=== PATIENT | male | born 1975 | race Caucasian/White ===

== ENCOUNTER 2018-03-19 14:10 | Emergency (ER) | payer OTHER ==
[~2018-03-19] VITALS: Ht 177.8 cm; Wt 95.1 kg
[2018-03-19 14:13] VITALS: TEMP 98.6
[2018-03-19] MEDS ORDERED: PRIL40 PO (14:29)
[2018-03-19] MEDS ORDERED: AMOXICILLIN 8751 TAB PO (15:51)
[2018-03-19 16:08] VITALS: BP 132/78; PULSE 61
== END 2018-03-19 16:31 | disposition home or self-care (01) ==
LOC: COL.ER 14:10
DX: S02.40DA Maxillary fracture, left side, initial encounter for closed fracture (principal); S02.40FA Zygomatic fracture, left side, initial encounter for closed fracture; Z23 Encounter for immunization; Y04.2XXA Assault by strike against or bumped into by another person, initial encounter; Y07.499 Other family member, perpetrator of maltreatment and neglect; Y92.59 Other trade areas as the place of occurrence of the external cause